=== PATIENT | male | born 1975 | race Two or more races ===

== ENCOUNTER 2018-05-12 13:07 | Emergency (ER) | payer SELFPAY ==
[~2018-05-12] VITALS: Ht 165.1 cm; Wt 90.7 kg
[2018-05-12 13:17] VITALS: BP 129/83
== END 2018-05-12 13:35 | disposition left against medical advice (07) ==
LOC: ER 13:07
DX: S61.512A Laceration without foreign body of left wrist, initial encounter (principal); Z53.21 Procedure and treatment not carried out due to patient leaving prior to being seen by health care provider; W54.0XXA Bitten by dog, initial encounter; Y93.89 Activity, other specified; Y92.89 Other specified places as the place of occurrence of the external cause; Y99.8 Other external cause status